=== PATIENT | male | born 1990 | race Two or more races ===

== ENCOUNTER 2024-07-18 16:55 | Emergency (ER) | payer MEDICAID, OTHER ==
[~2024-07-18] VITALS: Ht 170.2 cm; Wt 69.0 kg
[2024-07-18 17:18] VITALS: BP 127/93; PULSE 81; RESP 16; O2SAT 95
== END 2024-07-18 22:19 | disposition left against medical advice (07) ==
LOC: ER 16:55
DX: H57.12 Ocular pain, left eye (principal); Z53.21 Procedure and treatment not carried out due to patient leaving prior to being seen by health care provider

== ENCOUNTER 2024-10-15 22:22 | Emergency (ER) | payer MEDICAID ==
[~2024-10-15] VITALS: Ht 172.7 cm; Wt 70.2 kg
[2024-10-15 22:41] VITALS: BP 133/93; RESP 20; O2SAT 100
[2024-10-15 22:54] LABS: Basophils # (auto) 0.1 10 ^3/uL (0-0.2); Basophils % (auto) 0.8 % (0.0-2.0); Eosinophils # (auto) 0.2 10 ^3/uL (0-0.8); Eosinophils % (auto) 2.1 % (0.0-7.0); Hematocrit 43.2 % (41.0-53.0); Hemoglobin 14.8 g/dL (13.5-17.5); Lymphocytes # (auto) 1.8 10 ^3/uL (0.4-5.4); Lymphocytes % (auto) 21.2 % (10.0-50.0); Mean Corpuscular Hemoglobin 28.2 pg (28.0-32.0); Mean Corpuscular Hgb Conc. 34.2 g/dL (32.0-36.0); Mean Corpuscular Volume 82.3 fL (80.0-100.0); Monocytes # (auto) 0.5 10 ^3/uL (0-1.3); Monocytes % (auto) 6.4 % (0.0-12.0); Neutrophils # (auto) 5.9 10 ^3/uL (1.6-8.6); Neutrophils % (auto) 69.5 % (37.0-80.0); Platelet Count (auto) 276 10^3/uL (140-450); Red Blood Cells 5.24 10^6/uL (4.5-5.90); Red Cell Distribution Width 13.2 % (11.8-14.3); White Blood Cell 8.5 10^3/uL (4.4-10.8)
[2024-10-15 22:55] LABS: Chloride 104 mmol/L (98-107); Potassium 4.4 mmol/L (3.5-5.1); Sodium 143 mmol/L (136-145)
[2024-10-15 22:56] LABS: Anion Gap 5 (5-15); Carbon Dioxide 34 mmol/L (20-31)
[2024-10-15 22:57] LABS: Calcium 10.2 mg/dL (8.7-10.4)
[2024-10-15] MEDS: SODIUM CHLORIDE 0.9% 1,000 ML IV ONE (23:00)
[2024-10-15 23:01] LABS: Glucose 100 mg/dL (74-106)
[2024-10-15 23:02] LABS: BUN/Creatinine Ratio 9.1 (10.0-20.0); Blood Urea Nitrogen 13 mg/dL (9-23)
[2024-10-15 23:12] VITALS: PULSE 55
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
--- NOTE | 2024-10-16 06:48 | ECG ---
[facility] Test Date: 2024-10-15 Test Time: 22:29:17 Pat Name: JESSICA RODRIGUEZ Department: ed Room: Gender: M Large Engine Assembler: madhavi : 1990 Requested By: SCHUYLER SIMON Order Number: [id number] Reading MD: Measurements Intervals [place] Rate: 55 P: 20 ME: 106 QRS: 62 QRSD: 87 T: 42 QT: 428 QTc: 410 Interpretive Statements Sinus rhythm Short ME interval ST elev, probable normal early repol pattern Please click the below link to view image of tracing.
== END 2024-10-16 01:43 | disposition home or self-care (01) ==
LOC: ER 22:22
DX: K29.70 Gastritis, unspecified, without bleeding (principal); Z98.890 Other specified postprocedural states
CPT/HCPCS: 36415; 80048; 84484; 85025; 85379; 93005